=== PATIENT | male | born 1960 | race Caucasian/White ===

== ENCOUNTER 2017-03-24 06:38 | Inpatient (IN) | payer BC, OTHER ==
[2017-03-23 12:37] VITALS: Ht 170.2 cm; Wt 70.4 kg
[~2017-03-24] VITALS: Ht 170.2 cm; Wt 70.4 kg
[2017-03-24] VITALS (23 sets, daily range): BP systolic 100–133; BP diastolic 46–76; PULSE 62–96; RESP 13–20
[~2017-03-24 06:38] MED LIST: ASPI-664 PO; ATOR10TA65 PO
--- NOTE | 2017-03-24 06:48 | HPN ---
Date/Time of Note Date/Time of Note DATE: 03/24/17 TIME: 06:47 Interval H&P Admission Note Pt. seen H&P reviewed: No system changes ELAINE FARIAS MD Mar 24, 2017 06:48
[2017-03-24] MEDS ORDERED: ATOR10TA65 PO (08:35)
[2017-03-24 08:40] LABS: BASOPHILS % 0.4 % (0.0-2.0); EOSINOPHILS # 0.1 10^3/ul (0.0-0.5); EOSINOPHILS % 0.8 % (0.0-7.0); HEMATOCRIT 48.9 % (42.0-52.0); HEMOGLOBIN 17.1 g/dl (14.0-18.0); LYMPHOCYTES # 2.2 10^3/ul (0.8-2.9); LYMPHOCYTES % 28.5 % (15.0-51.0); MEAN CORPUSCULAR VOLUME 88.6 fl (82.0-101.0); MEAN PLATELET VOLUME 8.8 fl (7.4-10.4); MONOCYTE # 0.6 10^3/ul (0.3-0.9); MONOCYTES % 7.9 % (0.0-11.0); NEUTROPHILS % 61.9 % (39.0-77.0); PLATELET COUNT 255 10^3/UL (140-415); RED BLOOD COUNT 5.52 10^6/ul (4.70-6.10); RED CELL DISTRIBUTION WIDTH 12.6 % (11.5-14.5); WHITE BLOOD COUNT 7.7 10^3/ul (4.8-10.8)
[2017-03-24 08:58] LABS: INR 0.99; PROTIME 13.1 Sec (12.2-14.2)
[2017-03-24 08:59] LABS: PARTIAL THROMBOPLASTIN TIME 26.6 Sec (25.0-35.0)
[2017-03-24] MEDS ORDERED: SOD CHLORIDE 0.9% 100 ML, TRANEXAMIC ACID 3,000 MG IRR SCH ×2 (09:00)
[2017-03-24] MEDS ORDERED: GABAPENTIN 300 MG CAP PO SCH ×2 (09:00→21:00)
[2017-03-24] MEDS ORDERED: traMADol 50 MG TAB PO SCH (09:00)
[2017-03-24] MEDS ORDERED: DEXAMETHASONE 1 MG TAB PO SCH (09:00)
[2017-03-24] MEDS ORDERED: BUPIVACAINE 0.5% (SDV) 30 ML, morphine SULFATE (PF) 8 MG, EPINEPHrine 0.3 MG, KETOROLAC... IRR SCH ×7 (09:00)
[2017-03-24] MEDS ORDERED: CEFAZOLIN 2 GM/50 ML (PMX) 50 ML IVPB SCH (09:00)
[2017-03-24] MEDS ORDERED: TRANEXAMIC ACID 1,000 MG in SOD CHLORIDE 0.9% 100 ML IVPB SCH (09:00)
[2017-03-24 09:02] LABS: ALBUMIN 4.6 g/dl (3.3-4.9); ALBUMIN/GLOBULIN RATIO 1.64; BILIRUBIN,INDIRECT 1.1 mg/dl (0-1.1); BILIRUBIN,TOTAL 1.1 mg/dl (0.2-1.3); TOTAL PROTEIN 7.4 g/dl (6.1-8.1)
[2017-03-24] MEDS ORDERED: THROMBIN 5000 UNIT VIAL ONE (09:06)
[2017-03-24] MEDS ORDERED: POLYMYXIN/BACITRACIN 1L IRRIG ONE (09:06)
[2017-03-24] MEDS ORDERED: BUPIVACAINE 0.5%/EPI (SDV) 10 ML INJ ONE (09:06)
[2017-03-24] MEDS ORDERED: CA CHLORIDE 10% 10 ML SYRINGE ONE (09:06)
[2017-03-24] MEDS ORDERED: MIDAZOLAM 1 MG/ML 2 ML INJ ONE (09:07)
[2017-03-24] MEDS ORDERED: FENTAnyl 50 MCG/ML VIAL ONE (09:07)
[2017-03-24 09:08] LABS: CALCIUM 9.6 mg/dl (8.4-10.2); CREATININE 0.86 mg/dl (0.61-1.24); POTASSIUM 3.7 mmol/L (3.5-5.1)
[2017-03-24] MEDS ORDERED: ROPIVACAINE 0.5 % 30 ML VIAL ONE (09:11)
[2017-03-24 09:28] LABS: ADD UMIC NO; UR ASCORBIC ACID 20 mg/dL (NEGATIVE); UR BILIRUBIN (Dip) NEGATIVE (NEGATIVE); UR BLOOD (Dip) NEGATIVE (NEGATIVE); UR CLARITY CLEAR (CLEAR); UR COLOR YELLOW (YELLOW); UR GLUCOSE (Dip) NEGATIVE (NEGATIVE); UR KETONES (Dip) NEGATIVE (NEGATIVE); UR LEUKOCYTE ESTERASE (Dip) NEGATIVE Leu/ul (NEGATIVE); UR NITRITE (Dip) NEGATIVE (NEGATIVE); UR SPECIFIC GRAVITY (Dip) 1.018 (1.003-1.030); UR TOTAL PROTEIN (Dip) NEGATIVE (NEGATIVE); UR UROBILINOGEN (Dip) NEGATIVE (NEGATIVE)
[2017-03-24] MEDS ORDERED: DIPHENHYDRAMINE 50 MG INJ IV PRN ×2 (10:30→11:30)
[2017-03-24] MEDS ORDERED: FENTAnyl 50 MCG/ML VIAL IV PRN (10:30)
[2017-03-24] MEDS ORDERED: NALOXONE (0.4 MG/ML) INJ IV PRN (10:30)
[2017-03-24] MEDS ORDERED: ONDANSETRON 4 MG INJ IV PRN ×2 (10:30→11:30)
[2017-03-24] MEDS ORDERED: PROPOFOL 20 ML ONE (11:26)
[2017-03-24] MEDS ORDERED: ROCURONIUM 50 MG INJ ONE (11:26)
[2017-03-24] MEDS ORDERED: NEOSTIGMINE 3 MG/3 ML SYRINGE ONE (11:26)
[2017-03-24] MEDS ORDERED: GLYCOPYRROLATE 0.4 MG INJ ONE (11:26)
[2017-03-24] MEDS ORDERED: LIDOCAINE 2% (SDV) 5 ML INJ ONE (11:26)
[2017-03-24] MEDS ORDERED: ONDANSETRON 4 MG INJ ONE (11:27)
[2017-03-24] MEDS ORDERED: OXYCODONE/ACETAMINOPHEN (5/325) TAB PO PRN (11:30)
[2017-03-24] MEDS ORDERED: ZOLPIDEM 5 MG TAB PO PRN (11:30)
[2017-03-24] MEDS ORDERED: morphine 2 MG INJ IV PRN (11:30)
[2017-03-24] MEDS ORDERED: MAGNESIUM HYDROXIDE 30ML CUP PO PRN (11:30)
[2017-03-24] MEDS ORDERED: morphine 4 MG/ML VIAL IV PRN (11:30)
[2017-03-24] MEDS ORDERED: ACETAMINOPHEN 500 MG TAB PO PRN (11:30)
[2017-03-24] MEDS ORDERED: TRANEXAMIC ACID 1,000 MG in SOD CHLORIDE 0.9% 100 ML IV ONE (11:30)
[2017-03-24] MEDS ORDERED: KETOROLAC 15 MG INJ IV PRN (11:30)
--- NOTE | 2017-03-24 11:36 | OPR ---
Date/Time of Note Date/Time of Note DATE: 03/24/17 TIME: 11:33 Operative Report Procedure Date: Mar 24, 2017 Preoperative Diagnosis Failed left shoulder hemiarthroplasty Postoperative Diagnosis Failed left shoulder hemiarthroplasty Operation Performed Revision of left shoulder hemiarthroplasty with reverse total shoulder replacement Surgeon: ELAINE FARIAS MD Motion Picture Photographer: KARI SPRINGER MD Anesthesia Type: general Estimated Blood Loss: 50 - 100 ml's Transfusion Required: no Specimen: none Complications: no Pt Condition Post Procedure: stable Disposition: PACU Procedure Description INDIAN NANNY SURGEON: [Kari Springer MD] was asked to be present for this case at my request. Assistance was necessary as a result of the highly technical nature of this operation. When performing an open total shoulder replacement, it is critical to have a trained assistant district attorney who is an expert in handling the extremity and assisting the surgeon in tasks such as suture management and knot-tying techniques as well as implants. This assistance cannot be performed by a body art technician, as it is considered an integral part of the procedure and the assistant district attorney should be compensated for their time. PROCEDURE IN DETAIL: Following the administration of general anesthesia supplemented with a peripheral nerve block for postoperative pain control, the patient was examined under anesthesia. The patient was then placed in the beach chair position. Sterile prep and drape was then undertaken. An extended deltopectoral incision was then carried through the interval exposing the conjoined tendon and retracting it medially. The subscapularis was incised and mobilized. It was very scarred secondary to the prior surgical procedure. The humeral component was then identified. The superior rotator cuff appeared normal. There was significant erosion of the glenoid medially and superiorly. The humeral component was then removed relatively atraumatically. The rotator cuff and tuberosity were preserved. The humerus was retracted and the glenoid was exposed. Peripheral osteophytes were removed and a complete capsulectomy performed. The central canal of the glenoid was then entered and prepared for a size [40] Depuy anchor peg glenoid. A Depuy anchor peg glenoid was then cemented into position with solid fixation. The humerus was then reamed and prepared for a [10 mm] humeral component with a [44 mm x 15 mm] humeral head. The actual components were implanted with solid fixation. The subscapularis was reapproximated using #2 sutures that were passed circumferentially around the humerus with a watertight closure of the interval. In addition, several #5 sutures were then passed around the posterior rotator cuff. The arm was taken through full range of motion with no evident instability. The joint was then thoroughly irrigated, the deep tissues were approximated using #1 suture followed by closure of the deep layer using 2-0 Monocryl. The skin was closed using 4-0 Monocryl suture, and a Prenio dressing. An Ultrasling was then applied. The patient was awakened and transported to the recovery room in stable condition. Estimated blood loss for this procedure was [100 cc]. Radiographs will be obtained in the recovery room. ELAINE FARIAS MD Mar 24, 2017 11:36
--- NOTE | 2017-03-24 11:37 | PDOCDIS ---
Discharge Instructions DIAGNOSIS Discharge Diagnosis Failed left shoulder hemiarthroplasty CONDITION Patient Condition: Good HOME CARE INSTRUCTIONS: Diet Instructions: Regular ACTIVITY: Activity Restrictions: Slowly Increase Activity Keep Limb Elevated Bathing Restrictions: Shower FOLLOW UP/APPOINTMENTS Follow-up Plan 2 weeks SCHOOL/WORK RELEASE May return to School/Work with: With Restrictions School/Work Release Comment: 5 pounds tabletop usage for 6 weeks ELAINE FARIAS MD Mar 24, 2017 11:37
--- NOTE | 2017-03-24 11:44 | RADRPT ---
PROCEDURE: Left shoulder x-ray CLINICAL INDICATION: Missing needle TECHNIQUE: A single AP view of the left shoulder was obtained. COMPARISON: None FINDINGS: A total left shoulder prosthesis is noted in near anatomic alignment with likely postoperative steele es including subcutaneous emphysema. No other definite radiopaque foreign bodies are identified whi ch have the shape of a needle. IMPRESSION: Total left shoulder prosthesis in near anatomic alignment with likely postoperative changes. No radiopaque needle is identified. RPTAT: EE Physician Elio Date Time Electronically viewed and signed by Turner Lance Physician on 03/24/2017 11:44 /
[2017-03-24] MEDS ORDERED: DEXAMETHASONE 2 MG TAB PO SCH (12:00)
--- NOTE | 2017-03-24 13:09 | RADRPT ---
PROCEDURE: Left shoulder 2 views CLINICAL INDICATION: Status post left shoulder hemiarthroplasty placement. Left shoulder pain. TECHNIQUE: AP internal and external rotation views of the left shoulder were obtained COMPARISON: None available FINDINGS: Left shoulder hemiarthroplasty is identified. Prosthetic components appear in appropriate position and alignment. Subtle nondisplaced fracture through the greater tuberosity of the remaining humeral head is seen. Diffuse osteopenia is seen. The remaining osseous structures appear intact. No tayla tructive bony lesions are observed. A few surgical clips are seen overlying the glenoid and axill a. Soft tissue air is procedural in nature. IMPRESSION: Left shoulder hemiarthroplasty. Prosthetic components appear in appropriate position and alignment. Subtle minimally displaced fracture through the greater tuberosity of the remaining humeral head. C hronicity of this fracture is uncertain. If further characterization is needed CT or MRI could be helpful. RPTAT: AA .Mike Hoang MD, Date Time Electronically viewed and signed by .Mike Hoang MD, on 03/24/2017 13:09 .P/
[2017-03-24] MEDS ORDERED: CEFAZOLIN 1 GM/50 ML (PMX) 50 ML IVPB SCH (16:00)
[2017-03-24] MEDS: DEXAMETHASONE 2 MG TAB PO SCH ×2 (20:36→23:51)
[2017-03-24] MEDS: CEFAZOLIN 1 GM/50 ML (PMX) 50 ML IVPB SCH (20:36)
[2017-03-24] MEDS: SENNA/DOCUSATE NA (8.6MG/50MG) TAB PO SCH (20:36)
[2017-03-24] MEDS ORDERED: ATORVASTATIN 10 MG TAB PO SCH (21:00)
[2017-03-25 01:29] VITALS: BP 139/68; RESP 20
[2017-03-25] MEDS: OXYCODONE/ACETAMINOPHEN (5/325) TAB PO PRN ×2 (02:31→06:59)
[2017-03-25] MEDS: CEFAZOLIN 1 GM/50 ML (PMX) 50 ML IVPB SCH (04:42)
[2017-03-25] MEDS: DEXAMETHASONE 2 MG TAB PO SCH (06:22)
--- NOTE | 2017-03-25 06:41 | PN ---
Date/Time of Note Date/Time of Note DATE: 03/25/17 TIME: 06:40 24 hour Interval Summary Patient is awake and alert with no complaints this morning. He has no pain. Physical Exam Physical examination: His wound is clean and dry. He is neurologically intact in the left upper extremity. There are no signs of DVT. Vital Signs Date Time Temp Pulse Resp B/P Pulse Ox O2 Delivery O2 Flow Rate FiO2 03/25/17 01:29 98.0 67 20 139/68 97 03/24/17 16:45 Room Air 03/24/17 15:15 Intake and Output 03/24/17 03/24/17 03/25/17 15:00 23:00 07:00 Intake Total 1300 ml 650 ml 1050 ml Output Total 100 ml 250 ml Balance 1200 ml 400 ml 1050 ml VTE Prophylaxis VTE Prophylaxis Intervention: anti-embolic stocking Lines/Catheters IV Catheter Type: Saline Lock Garcia in Place: No Results Result Diagram: 03/24/17 0815 03/24/17 0815 Results 24hrs Laboratory Tests Test 03/24/17 08:15 White Blood Count 7.7 Red Blood Count 5.52 Hemoglobin 17.1 Hematocrit 48.9 Mean Corpuscular Volume 88.6 Mean Corpuscular Hemoglobin 31.0 Mean Corpuscular Hemoglobin Concent 35.0 Red Cell Distribution Width 12.6 Platelet Count 255 Mean Platelet Volume 8.8 Neutrophils % 61.9 Lymphocytes % 28.5 Monocytes % 7.9 Eosinophils % 0.8 Basophils % 0.4 Nucleated Red Blood Cells % 0.0 Neutrophils # (Manual) 5 Lymphocytes # 2.2 Monocytes # 0.6 Eosinophils # 0.1 Basophils # 0.0 Nucleated Red Blood Cells # 0.0 Prothrombin Time 13.1 Prothrombin Time Ratio 1.0 INR International Normalized Ratio 0.99 Activated Partial Thromboplast Time 26.6 Urine Color YELLOW Urine Clarity CLEAR Urine pH 7.0 Urine Specific Abbott 1.018 Urine Ketones NEGATIVE Urine Nitrite NEGATIVE Urine Bilirubin NEGATIVE Urine Urobilinogen NEGATIVE Urine Leukocyte Esterase NEGATIVE Urine Hemoglobin NEGATIVE Urine Glucose NEGATIVE Urine Total Protein NEGATIVE Sodium Level 138 Potassium Level 3.7 Chloride Level 101 Carbon Dioxide Level 28 Anion Gap 13 Blood Urea Nitrogen 16 Creatinine 0.86 Glucose Level 95 Calcium Level 9.6 Total Bilirubin 1.1 Direct Bilirubin 0.00 Indirect Bilirubin 1.1 Aspartate Amino Transf (AST/SGOT) 36 Alanine Aminotransferase (ALT/SGPT) 50 Alkaline Phosphatase 81 Total Protein 7.4 Albumin 4.6 Globulin 2.80 Albumin/Globulin Ratio 1.64 Assessment/Plan Assessment/Plan Assessment: Status post total shoulder replacement Plan: He will be discharged following physical therapy this morning follow-up in the office in 2 weeks Medications Medications Home Meds Reported Medications Atorvastatin Calcium (Atorvastatin Calcium) 10 Mg Tablet, 10 MG PO QHS, #30 TAB 03/24/17 Aspirin* (Aspirin* (EC)) 81 Mg Tablet., 81 MG PO DAILY, TAB 03/23/17 ELAINE FARIAS MD Mar 25, 2017 06:41
--- NOTE | 2017-03-25 06:42 | DS ---
Date/Time of Note Date/Time of Note DATE: 03/25/17 TIME: 06:41 Discharge Summary Admission/Discharge Info Admit Date/Time Mar 24, 2017 at 06:38 Discharge Date/Time March 25, 2017 Discharge Diagnosis Failed left shoulder hemiarthroplasty Patient Condition: Good Procedures Revision of left shoulder hemiarthroplasty to total shoulder arthroplasty Hx of Present Illness Pain and stiffness following hemiarthroplasty done in 2010 Hospital Course Patient was admitted and underwent an uncomplicated procedure. Postop day #1 he was clamped wound was clean and dry he was neurologically intact to be discharged followed up in the office in 2 weeks Home Meds Reported Medications Atorvastatin Calcium (Atorvastatin Calcium) 10 Mg Tablet, 10 MG PO QHS, #30 TAB 03/24/17 Aspirin* (Aspirin* (EC)) 81 Mg Tablet.dr, 81 MG PO DAILY, TAB 03/23/17 Primary Care Provider Not On Staff Doctor Pending Labs Laboratory Tests Test 03/24/17 08:15 White Blood Count 7.710^3/ul (4.8-10.8) Red Blood Count 5.5210^6/ul (4.70-6.10) Hemoglobin 17.1g/dl (14.0-18.0) Hematocrit 48.9% (42.0-52.0) Mean Corpuscular Volume 88.6fl (82.0-101.0) Mean Corpuscular Hemoglobin 31.0pg (29.0-33.0) Mean Corpuscular Hemoglobin Concent 35.0g/dl (32.0-37.0) Red Cell Distribution Width 12.6% (11.5-14.5) Platelet Count 38595^3/UL (140-415) Mean Platelet Volume 8.8fl (7.4-10.4) Neutrophils % 61.9% (39.0-77.0) Lymphocytes % 28.5% (15.0-51.0) Monocytes % 7.9% (0.0-11.0) Eosinophils % 0.8% (0.0-7.0) Basophils % 0.4% (0.0-2.0) Nucleated Red Blood Cells % 0.0/100WBC (0.0-0.0) Neutrophils # (Manual) 510^3/ul (1.7-7.5) Lymphocytes # 2.210^3/ul (0.8-2.9) Monocytes # 0.610^3/ul (0.3-0.9) Eosinophils # 0.110^3/ul (0.0-0.5) Basophils # 0.010^3/ul (0.0-0.1) Nucleated Red Blood Cells # 0.010^3/ul (0.0-0.0) Prothrombin Time 13.1Sec (12.2-14.2) Prothrombin Time Ratio 1.0 INR International Normalized Ratio 0.99 Activated Partial Thromboplast Time 26.6Sec (25.0-35.0) Urine Color YELLOW (YELLOW) Urine Clarity CLEAR (CLEAR) Urine pH 7.0 (5.0-9.0) Urine Specific [place]el 1.018 (1.003-1.030) Urine Ketones NEGATIVEmg/dL (NEGATIVE) Urine Nitrite NEGATIVEmg/dL (NEGATIVE) Urine Bilirubin NEGATIVEmg/dL (NEGATIVE) Urine Urobilinogen NEGATIVEmg/dL (NEGATIVE) Urine Leukocyte Esterase NEGATIVELeu/ul (NEGATIVE) Urine Hemoglobin NEGATIVEmg/dL (NEGATIVE) Urine Glucose NEGATIVEmg/dL (NEGATIVE) Urine Total Protein NEGATIVEmg/dl (NEGATIVE) Sodium Level 138mmol/L (135-144) Potassium Level 3.7mmol/L (3.5-5.1) Chloride Level 101mmol/L (97-110) Carbon Dioxide Level 28mmol/L (21-31) Anion Gap 13 (8-16) Blood Urea Nitrogen 16mg/dl (7-20) Creatinine 0.86mg/dl (0.61-1.24) Glucose Level 95mg/dl (70-220) Calcium Level 9.6mg/dl (8.4-10.2) Total Bilirubin 1.1mg/dl (0.2-1.3) Direct Bilirubin 0.00mg/dl (0.00-0.20) Indirect Bilirubin 1.1mg/dl (0-1.1) Aspartate Amino Transf (AST/SGOT) 36IU/L (15-46) Alanine Aminotransferase (ALT/SGPT) 50IU/L (13-69) Alkaline Phosphatase 81IU/L (42-121) Total Protein 7.4g/dl (6.1-8.1) Albumin 4.6g/dl (3.3-4.9) Globulin 2.80g/dl (1.3-3.2) Albumin/Globulin Ratio 1.64 ELAINE FARIAS MD Mar 25, 2017 06:42
[2017-03-25 07:00] VITALS: BP_SYST 114; BP_SYST 119; BP_DIAS 73; BP_DIAS 74; PULSE 90; RESP 18; RESP 19
[2017-03-25] MEDS ORDERED: ASPIRIN 81 MG TAB PO SCH (09:00)
[2017-03-25] MEDS: SENNA/DOCUSATE NA (8.6MG/50MG) TAB PO SCH (09:31)
== END 2017-03-25 11:10 | disposition home or self-care (01) | DRG 483 ==
LOC: REC 06:38 → EDSTATUS 07:00 → MS1 13:48
PROVIDERS: ADMIT Orthopaedic Surgery; ATTEND Orthopaedic Surgery
PROC: 0RPK0JZ Removal of Synthetic Substitute from Left Shoulder Joint, Open Approach (ICD-10-PCS; 2017-03-24)
PROC: 0RRK0JZ Replacement of Left Shoulder Joint with Synthetic Substitute, Open Approach (ICD-10-PCS; principal; 2017-03-24 09:30)
DX: T84.098A Other mechanical complication of other internal joint prosthesis, initial encounter (principal); Z88.6 Allergy status to analgesic agent; Y83.8 Other surgical procedures as the cause of abnormal reaction of the patient, or of later complication, without mention of misadventure at the time of the procedure; Y79.3 Surgical instruments, materials and orthopedic devices (including sutures) associated with adverse incidents; Z96.612 Presence of left artificial shoulder joint; Z96.611 Presence of right artificial shoulder joint; Y92.9 Unspecified place or not applicable; Z79.82 Long term (current) use of aspirin
CPT/HCPCS: 73020; 73030; 80053; 81003; 85025; 85610; 85730; 86999; 87070; 87075; C1713; C1776; J0171; J0690; J0735; J1885; J2250; J2274; J2405; J2710; J2795; J3010; J3370

== ENCOUNTER 2018-02-02 11:02 | Day surgery (SDC) | END 2018-02-02 17:23 | disposition home or self-care (01) ==